=== PATIENT | female | born 1980 | race Caucasian/White ===

== ENCOUNTER → 2018-12-23 12:13 | Emergency (ER) | payer OTHER ==
[~2018-12-23] VITALS: Ht 165.1 cm; Wt 73.9 kg
[~2018-12-23 12:13] MED LIST: cloNIDine HCL 0.1 MG TAB PO ONE
[2018-12-23 13:09] VITALS: BP 173/103
== END | disposition home or self-care (01) ==
LOC: ER 12:13
DX: J06.9 Acute upper respiratory infection, unspecified (principal); I10 Essential (primary) hypertension